=== PATIENT | male | born 1985 | race African-American/Black ===

== ENCOUNTER 2017-09-07 23:01 | Emergency (ER) | payer OTHER ==
[~2017-09-07] VITALS: Ht 185.4 cm; Wt 97.5 kg
[2017-09-07] MEDS ORDERED: IV NORMAL SALINE 1000 ML BAG IV ONE (23:45)
[2017-09-08 00:19] LABS: EOSINOPHILS # (AUTO) 0.1 K/uL (0.0-0.7); EOSINOPHILS % (AUTO) 2.6 % (0.0-7.0); HEMATOCRIT 39.2 % (36.7-47.1); HEMOGLOBIN 13.6 g/dL (12.5-16.3); LYMPHOCYTES # (AUTO) 1.1 K/uL (20.0-40.0); LYMPHOCYTES % (AUTO) 25.4 % (20.5-51.5); MEAN CORPUSCULAR HEMOGLOBIN 30.1 uug (23.8-33.4); MEAN CORPUSCULAR HGB CONC 35 g/dL (32.5-36.3); MEAN CORPUSCULAR VOLUME 86.7 fL (73.0-96.2); MONOCYTES # (AUTO) 0.2 K/uL (2.0-10.0); MONOCYTES % (AUTO) 4.3 % (0.0-11.0); NEUTROPHILS % (AUTO) 66.7 % (38.5-71.5); PLATELET COUNT (AUTO) 284 K/uL (152-348); RED BLOOD CELL COUNT(AUTO) 4.52 MIL/uL (4.06-5.63); WHITE BLOOD COUNT (AUTO) 4.5 K/uL (3.6-10.2)
[2017-09-08 00:22] LABS: ETHANOL < 3 MG/DL (0-0)
[2017-09-08 00:34] LABS: ALANINE AMINOTRANSFERASE 35 U/L (16-63); ALKALINE PHOSPHATASE 103 U/L (50-136); ASPARTATE AMINOTRANSFERASE 15 U/L (15-37); BILIRUBIN,DIRECT 0.2 mg/dL (0.0-0.2); BILIRUBIN,TOTAL 0.8 mg/dL (0.2-1.0); CARBON DIOXIDE 30 mmol/L (21-32); CHLORIDE 99 mmol/L (98-107); CREATININE 1.4 mg/dL (0.6-1.3); GLUCOSE 120 mg/dL (74-106); LIPASE 200 U/L (73-393); POTASSIUM 3.4 mmol/L (3.5-5.1); TOTAL PROTEIN, SERUM 7.5 g/dL (6.4-8.2); UREA NITROGEN, BLOOD 16 mg/dL (7-18)
[2017-09-08 00:36] LABS: ACETAMINOPHEN < 2.0 ug/mL (10-30)
--- NOTE | 2017-09-08 00:52 | NUR ---
Call placed to Danie Moulton LCSW. No answer at this time. Call back peding. Will reattempt in 20 min.
--- NOTE | 2017-09-08 01:00 | NUR ---
PT RESTING IN A POSITION OF COMFORT W/ MOTHER AT BEDSIDE. NO DISTRESS NOTED.
--- NOTE | 2017-09-08 01:04 | NUR ---
Spoke with GORDO Moulton, Art will come see the patient.
--- NOTE | 2017-09-08 01:40 | NUR ---
ART CAPILLA AT PT BEDSIDE
--- NOTE | 2017-09-08 01:50 | NUR ---
Patient cleared by PHARMACE[employer] BOTANIST Danie Moulton. Patient provided with resources, mother at bedside.
--- NOTE | 2017-09-08 02:00 | NUR ---
Peripheral IV removed prior to d/c.
--- NOTE | 2017-09-08 02:04 | NUR ---
Patient discharged to home in stable conditon. Written and verbal after care instructions given. Patient verbalizes understanding of instructions. Pt took all belongings. Ambulated out of ER w/ steady gait. Accompanied by mother.
[2017-09-08 02:06] VITALS: BP 136/80
== END 2017-09-08 02:06 | disposition home or self-care (01) ==
LOC: ER 23:05
DX: F20.9 Schizophrenia, unspecified (principal)
CPT/HCPCS: 36415; 71010; 80048; 80076; 82550; 83690; 84484; 85025; 85730; 99285; A4663; G0480 ×2; G0481; J7030; 70030-TC